=== PATIENT | male | born 1945 | race Caucasian/White ===

== ENCOUNTER 2017-11-10 09:02 | Outpatient (CLI) | payer MEDICARE ==
--- NOTE | 2017-11-10 13:23 | CT ---
PRE AND POST CONTRAST ENHANCED CT IMAGES OF THE ABDOMEN AND PELVIS: History: Prostate cancer. Rising PSA. Mets to tailbone. FINDINGS: There is a prosthetic aortic valve present. The lung bases demonstrate some mild fibrotic changes. A right lower lobe calcified granuloma is present. No evidence of free intraperitoneal air is seen. The liver and spleen, gallbladder and pancreas are unremarkable. Kidneys are unremarkable. Splenic calcifications are seen. The right adrenal gland is unremarkable. The left adrenal gland cont ains area of calcification. Atherosclerotic calcification of the abdominal aorta is present. No dilat ed loops of small bowel are seen. The colon demonstrates no significant abnormalities. No evidence of pelvic lymphadenopathy is seen. There does appear to be an area of sclerosis in the right L2 vertebra and pedicle concerning for lumb ar spine metastatic disease. There may also be some tiny bilateral posterior iliac sclerotic lesions present. These are all 2-3 mm in diameter and are too small to characterize. IMPRESSION: 1. L2 sclerotic lesion with possible tiny multiple iliac lesions. A small sclerotic lesion may also b e present in the L3 as well as T9 and T10 vertebrae. 2. There are also numerous bilateral ischial tiny sclerotic lesions present as well. POS: [facility]
[2017-11-10] MEDS ORDERED: Iopamidol 370 76% 100 ML VIAL ONE (13:57)
--- NOTE | 2017-11-10 13:57 | NM ---
NUCLEAR MEDICINE BONE SCAN WHOLE BODY: (SKELETAL SCINTIGRAPHY) Date: 11/10/17 HISTORY: 72-year-old male with history of prostate cancer and rising serum PSA levels. 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 COMPARISON: No prior bone scans or MRIs are available for review. There is a CT of the abdomen and pelvis of the same day, 11/10/17. TECHNIQUE: IV injection of [id number]: 30.4 mCi 3 hour delayed whole body skeletal scintigraphy in anterior and posterior views. FINDINGS: There is a focus of asymmetrically high uptake in the right shoulder, more specifically at the AC mitchel nt. There is increased uptake in the contralateral left AC joint, but not as strong as that on the ri ght. There is a prominent focus of horizontally oriented increased uptake at the right side of the lumbar spine at L3-4, corresponding to the asymmetrically large right lateral marginal end plate osteophytes with associated sclerotic degenerative changes, at L3-[address] Just superior to that, there is a more subtle and more faint focus of mildly increased uptake involving the right side of the L2 verte bral body which corresponds to the focal sclerotic lesion on the CT, suspicious for an osseous metast atic deposit. The CT also demonstrates a large number of tiny focal sclerotic lesions throughout the visualized por tions of the lower thoracic spine, lumbar spine, and ischium bilaterally. These are not visible on th is bone scan, probably too tiny for significant uptake on the bone scan, with the possible exception of two faint small lesions in the posterior right ischium with mild increased uptake. There is symmetrically increased uptake in the bilateral knees, ankles, and elbows, consistent with o steoarthrosis. There is a small focus of mildly increased uptake in the mid thoracic spine to the rig ht of midline. This could represent degenerative changes or could represent a metastatic focus. IMPRESSION: 1. Three regions of small, mildly increased uptake, that may represent metastatic osseous lesions: at the L2 vertebral body and at the left ischium. These are questionable for metastatic lesions. 2. Strongly increased uptake in the right AC joint, probably representing degenerative changes of th e acromioclavicular joint. Further evaluation is recommended, beginning with plain radiograph of the right shoulder, to determine whether this is another metastatic deposit. 3 Osteoarthrosis of major joints. 4. Asymmetrical focus of increased uptake on the right side at L3-4 in the lumbar spine represents a symmetrical degenerative disc disease. DARLIN R POS: [facility]
== END 2017-11-10 09:03 | disposition home or self-care (01) ==
LOC: CT 09:02
PROVIDERS: ATTEND Urology
DX: C61 Malignant neoplasm of prostate (principal); M89.9 Disorder of bone, unspecified; M51.36 Other intervertebral disc degeneration, lumbar region; M19.90 Unspecified osteoarthritis, unspecified site; R94.8 Abnormal results of function studies of other organs and systems
CPT/HCPCS: 74178; 78306; 82565; A9503